=== PATIENT | male | born 1935 ===

== ENCOUNTER 2018-12-05 14:52 | Outpatient (CLI) | payer MEDICARE | END 2018-12-05 14:53 | disposition home or self-care (01) | LOC: C.RADIC 14:52 ==

== ENCOUNTER 2018-12-12 09:56 | Outpatient (CLI) | payer MEDICARE | END 2018-12-12 09:57 | disposition home or self-care (01) | LOC: C.VASC 09:57 ==

== ENCOUNTER 2018-12-20 10:07 | Outpatient (CLI) | payer MEDICARE | END 2018-12-20 10:08 | disposition home or self-care (01) | LOC: C.RADIC 10:07 | DX: M17.12 Unilateral primary osteoarthritis, left knee (principal) ==